=== PATIENT | male | born 1945 ===

== ENCOUNTER 2019-01-18 20:30 | Outpatient (CLI) | payer MEDICARE, BC | END 2019-01-18 20:31 | disposition home or self-care (01) | LOC: SLEEPLAB 20:30 | PROVIDERS: ATTEND Specialist | DX: G47.33 Obstructive sleep apnea (adult) (pediatric) (principal); R53.83 Other fatigue; I10 Essential (primary) hypertension | CPT/HCPCS: 95811 ==